=== PATIENT | male | born 1960 | race Caucasian/White ===

== ENCOUNTER → 2018-01-14 | Outpatient (CLI) | payer OTHER ==
[2018-01-14 10:38] LABS: Appearance,Urine Clear (Clear); Bilirubin,Urine Negative (Negative); Blood,Urine Negative (Negative); Color,Urine Yellow; Glucose,Urine (UA) Negative (Negative); HCT 46.7 % (39.0-53.0); HGB 15.7 gm/dL (13.0-17.5); Ketones,Urine Negative (Negative); Leukocyte Esterase,Urine Negative (Negative); MCH 29.1 pg (25.0-35.0); MCHC 33.6 g/dL (31.0-37.0); MCV 86.6 fL (80.0-100.0); Mean Platelet Volume 7.4; Nitrite,Urine Negative (Negative); PH, Urine 6.5 (5.0-8.0); Platelet Count 243 k/uL (150-450); Protein,Urine Negative (Negative); RBC 5.39 m/uL (4.30-5.90); RDW 13.1 % (11.5-15.5); WBC 4.5 k/uL (3.8-10.6)
[2018-01-14 11:09] LABS: ALT 35 U/L (21-72); AST 24 U/L (17-59); Albumin 4.7 g/dL (3.5-5.0); Alkaline Phosphatase 57 U/L (38-126); Anion Gap 15 mmol/L; Blood Urea Nitrogen 15 mg/dL (9-20); Calcium 10.1 mg/dL (8.4-10.2); Carbon Dioxide 28 mmol/L (22-30); Chloride 101 mmol/L (98-107); Cholesterol 143 mg/dL (<200); Creatine Kinase 198 U/L (55-170); Glucose 155 mg/dL (74-99); HDL Cholesterol 48 mg/dL (40-60); LDL Cholesterol,Calculated 72 mg/dL (0-99); Potassium 5.4 mmol/L (3.5-5.1); Sodium 144 mmol/L (137-145); Total Bilirubin 0.5 mg/dL (0.2-1.3); Total Protein 7.2 g/dL (6.3-8.2); Triglycerides 113 mg/dL (<150)
[2018-01-14 11:36] LABS: Prostate Specific Antigen 1.58 ng/mL (0.00-4.00)
[2018-01-14 17:23] LABS: Hemoglobin A1C 7.9 % (4.0-6.0)
== END | disposition home or self-care (01) ==
LOC: LABWHC1 09:54
PROVIDERS: ATTEND Family Medicine
DX: E11.9 Type 2 diabetes mellitus without complications (principal); R79.89 Other specified abnormal findings of blood chemistry; I10 Essential (primary) hypertension; E78.5 Hyperlipidemia, unspecified; Z11.59 Encounter for screening for other viral diseases
CPT/HCPCS: 36415; 80053; 80061; 81003; 82043; 82550; 82570; 83036; 84153; 84402; 84403; 84443; 85027; 86803

== ENCOUNTER → 2018-01-14 | Outpatient (CLI) | payer OTHER ==
[~2018-01-14] MED LIST: DIPH,PERTUS(ACELL)TETVAC-LF 0.5 ML VIAL IM ONE
[2018-01-14 10:39] VITALS: BP 163/96; PULSE 61; RESP 20; TEMP 97.7
== END | disposition home or self-care (01) ==
LOC: PROCWHC3 10:18
PROVIDERS: ATTEND Family Medicine
DX: Z23 Encounter for immunization (principal)
CPT/HCPCS: 36415; 80053; 80061; 81003; 82043; 82550; 82570; 83036; 84153; 84402; 84403; 84443; 85027; 86803; 90471; 90715

== ENCOUNTER → 2018-05-30 | Outpatient (CLI) | payer OTHER ==
[2018-05-30 18:38] LABS: Hemoglobin A1C 7.6 % (4.0-6.0)
== END ==
LOC: LABWHC1 08:58
PROVIDERS: ATTEND Family Medicine
DX: R79.9 Abnormal finding of blood chemistry, unspecified (principal)
CPT/HCPCS: 36415; 83036

== ENCOUNTER → 2020-03-16 | Outpatient (CLI) | payer OTHER ==
--- NOTE | 2020-03-16 12:15 | P.STRESS ---
- Stress Test Note Stress Test Results/Findings: Exam Performed: stress echo exercise Exam Date: 03/16/20 Reason for Exam: HYPERLIPIDEMIA Height: 6 ft Weight: 225 kg Protocol: GLENNA Stage: 3 Duration of Exercise: 9:00 Resting Heart Rate: 78 Resting Blood Pressure: 140/72 Maximum Achieved Heart Rate: 151 Maximum Achieved Blood Pressure: 205/73 85% PMHR: 138 100% PMHR: 162 METS: 10.3 Technologist Comment: Stress Test Results/Findings: This is a 59-year-old gentleman with history of hypertension, diabetes and hypercholesterolemia and also smoking history. Being evaluated for cardiac status. Stress data: Baseline EKG showed sinus rhythm with a AL interval, QRS duration. Blood pressure at rest is 140/72 with pulse rate of 78. Patient walked on the Glenna protocol for 9 minutes achieving a maximal heart rate of 151 with a blood pressure of 205/73. EKGs taken during and after the exercise did not reveal significant changes from the baseline. Patient did not experience any chest pain. Echo data: Baseline echo images show normal wall motion and thickening. Exercise echo images showed augmentation of wall motion and thickening in all the segments. Final impression: #1. Negative stress test #2. Negative stress echo.
--- NOTE | 2020-03-17 13:58 | ECHOS ---
Stress Test Results/Findings: Exam Performed: stress echo exercise Exam Date: 03/16/20 Reason for Exam: HYPERLIPIDEMIA Height: 6 ft Weight: 225 kg Protocol: GLENNA Stage: 3 Duration of Exercise: 9:00 Resting Heart Rate: 78 Resting Blood Pressure: 140/72 Maximum Achieved Heart Rate: 151 Maximum Achieved Blood Pressure: 205/73 85% PMHR: 138 100% PMHR: 162 METS: 10.3 Technologist Comment: Stress Test Results/Findings: This is a 59-year-old gentleman with history of hypertension, diabetes and hypercholesterolemia and also smoking history. Being evaluated for cardiac status. Stress data: Baseline EKG showed sinus rhythm with a OK interval, QRS duration. Blood pressure at rest is 140/72 with pulse rate of 78. Patient walked on the Glenna protocol for 9 minutes achieving a maximal heart rate of 151 with a blood pressure of 205/73. EKGs taken during and after the exercise did not reveal significant changes from the baseline. Patient did not experience any chest pain. Echo data: Baseline echo images show normal wall motion and thickening. Exercise echo images showed augmentation of wall motion and thickening in all the segments. Final impression: #1. Negative stress test #2. Negative stress echo. ANGELA
== END | disposition home or self-care (01) ==
LOC: RADNMMAIN 09:00
PROVIDERS: ATTEND Family Medicine
DX: I10 Essential (primary) hypertension (principal); E78.5 Hyperlipidemia, unspecified; E11.9 Type 2 diabetes mellitus without complications
CPT/HCPCS: 93351

== ENCOUNTER → 2023-06-04 | Outpatient (CLI) | payer OTHER ==
--- NOTE | 2023-06-04 23:39 | MR ---
EXAMINATION TYPE: MR shoulder RT wo con DATE OF EXAM: 06/04/2023 COMPARISON: Outside right shoulder x-ray May 28, 2023 HISTORY: Right shoulder pain, sore shoulder for 6 months with difficulty raising arm overhead TECHNIQUE: Multiplanar, multisequence imaging of the right shoulder is performed without contrast. FINDINGS: Rotator Cuff: Intact supraspinatus and infraspinatus tendons. Intact subscapularis tendon. Rotator cu ff muscle bulk is preserved. Acromioclavicular Joint: Moderate narrowing at the acromioclavicular joint with mild capsular hypertr ophy. Underlying fat plane is maintained. Glenohumeral Joint: There is a moderate-sized joint effusion. No significant spurring. Labrum: The labrum appears grossly intact given limitation of non-arthrogram study. Biceps Tendon: The long head of biceps is in normal location within bicipital groove. Bone marrow signal: There is subchondral cystic change superior lateral humeral head at the rotator c uff tendon insertion and more central humeral head. Other: No additional significant abnormality is appreciated. IMPRESSION: 1. No significant rotator cuff or labral tear. 2. [id number] AC joint arthropathy. 3. Fairly moderate size joint effusion.
== END | disposition home or self-care (01) ==
LOC: RADMRIMAIN 18:49
PROVIDERS: ATTEND Orthopaedic Surgery
DX: M19.011 Primary osteoarthritis, right shoulder (principal); M25.411 Effusion, right shoulder

== ENCOUNTER 2023-07-12 08:22 | Day surgery (SDC) | payer OTHER ==
[2023-07-10 14:43] VITALS: BMI 30.5
[~2023-07-12 08:22] MED LIST changes: -DIPH,PERTUS(ACELL)TETVAC-LF 0.5 ML VIAL IM ONE; +LIDOCAINE 1% (10MG/ML) FOR IV START INTRADERMA PRN
[2023-07-12] MEDS: LACTATED RINGERS 1,000 ML IV SCH ×2 (08:54→09:27)
[2023-07-12 09:09] LABS: Glucose,Whole Blood 128 mg/dL (70-110)
[2023-07-12 09:10] VITALS: RESP 16; TEMP 97
[2023-07-12] MEDS ORDERED: PROPOFOL 10 MG/ML 20 ML VIAL IV ONE (09:30)
--- NOTE | 2023-07-12 09:45 | P.PCN ---
Date of Procedure: 07/12/23 Procedure(s) Performed: BRIEF HISTORY: Patient is a 63-year-old pleasant white male scheduled for an elective colonoscopy as a part of screening for colon cancer. His last coloscopy was 12 years ago. PROCEDURE PERFORMED: Colonoscopy. PREOPERATIVE DIAGNOSIS: Screening for colon cancer. IV sedation per Anesthesia. PROCEDURE: After informed consent was obtained, the patient, was brought into the endoscopy unit. IV sedation was administered by Anesthesia under continuous monitoring. Digital rectal examination was normal. Initially the Olympus CF-160 flexible video colonoscope was then inserted in the rectum, gradually advanced into the cecum without any difficulty. Careful examination was performed as the scope was gradually being withdrawn. Ileocecal valve and the appendiceal orifice were visualized and appeared normal. Prep was fair.. Mucosa of the cecum, ascending colon, transverse colon, descending colon, sigmoid colon, and rectum appeared normal. Retroflexion was performed in the rectum and no lesions were seen. The patient tolerated the procedure well. IMPRESSION: Normal-appearing colon from rectum to cecum with no evidence of colorectal neoplasia. RECOMMENDATIONS: Findings of this examination were discussed with the patient as well as his family.. He was advised to have a repeat screening colonoscopy in 10 years.
[2023-07-12 10:02] VITALS: BP 128/91; PULSE 79
== END 2023-07-12 10:19 | disposition home or self-care (01) ==
LOC: ORWHC2ENDO 08:22
PROVIDERS: ATTEND Internal Medicine Gastroenterology
DX: Z12.11 Encounter for screening for malignant neoplasm of colon (principal); Z79.899 Other long term (current) drug therapy; I10 Essential (primary) hypertension; E78.5 Hyperlipidemia, unspecified; E11.9 Type 2 diabetes mellitus without complications
CPT/HCPCS: 45378; J2704

== ENCOUNTER → 2023-09-02 | Outpatient (CLI) | payer OTHER ==
[2023-09-02 15:12] LABS: Basophils # (A) 0.05 X 10*3/uL (0.00-0.10); Basophils % (A) 0.8 %; Eosinophils # (A) 0.28 X 10*3/uL (0.04-0.35); Eosinophils % (A) 4.7 %; HCT 49.6 % (39.6-50.0); Lymphocytes # (A) 1.48 X 10*3/uL (0.90-5.00); MCH 27.8 pg (27.0-32.0); MCHC 32.3 g/dL (32.0-37.0); MCV 86.3 FL (80.0-97.0); Mean Platelet Volume 10.9 FL (9.5-12.2); Monocytes # (A) 0.48 X 10*3/uL (0.20-1.00); Monocytes % (A) 8.1 %; NRBC Per 100 WBC 0 X 10*3/uL (0.00-0.01); Neutrophils # (A) 3.62 X 10*3/uL (1.80-7.70); Neutrophils % (A) 61.1 %; Platelet Count 260 X 10*3/uL (140-440); RBC 5.75 X 10*6/uL (4.40-5.60); RDW 13.1 % (11.5-14.5); WBC 5.93 X 10*3/uL (4.50-10.00)
[2023-09-02 15:18] LABS: BUN/Creat Ratio 14.69 Ratio (12.00-20.00); Blood Urea Nitrogen 19.1 mg/dL (9.0-27.0); Glucose 237 mg/dL (70-110)
[2023-09-02 15:19] LABS: Calcium 9.8 mg/dL (8.7-10.3); Chloride 98 mmol/L (96-109); Potassium 4.4 mmol/L (3.5-5.5); Sodium 139 mmol/L (135-145)
== END | disposition home or self-care (01) ==
LOC: LABPAT 08:03
PROVIDERS: ATTEND Orthopaedic Surgery
DX: Z01.812 Encounter for preprocedural laboratory examination (principal); M75.41 Impingement syndrome of right shoulder
CPT/HCPCS: 80048; 85025

== ENCOUNTER → 2023-09-03 | Outpatient (CLI) | payer OTHER | END | disposition home or self-care (01) | LOC: LABWHC1 08:48 | PROVIDERS: ATTEND Orthopaedic Surgery | DX: Z01.818 Encounter for other preprocedural examination (principal); M75.41 Impingement syndrome of right shoulder; R94.31 Abnormal electrocardiogram [ECG] [EKG] | CPT/HCPCS: 36415; 93005 ==

== ENCOUNTER 2023-09-05 05:45 | Day surgery (SDC) | payer OTHER ==
--- NOTE | 2023-09-04 19:30 | HP ---
HISTORY AND PHYSICAL DATE OF SURGERY: 09/05/2023. HISTORY OF PRESENT ILLNESS: Antonio Becker is a 63-year-old gentleman seen with progressive right shoulder pain. After having treatment options discussed, he elected to proceed with right shoulder arthroscopy. Consent regarding procedure was obtained. PAST MEDICAL HISTORY: Hypertension, czj-hvtrtte-qdoxzmztz diabetes, hyperlipidemia. PAST SURGICAL HISTORY: Noncontributory. DAILY MEDICATIONS: 1. Amlodipine. 2. Atenolol. 3. Benazepril. 4. Hydrochlorothiazide. 5. Metformin. 6. Rosuvastatin. ALLERGIES: None. SOCIAL HISTORY: He denies tobacco use. PHYSICAL EVALUATION OF THE RIGHT SHOULDER: Flexion is 150 degrees, abduction is 120 degrees. External rotation is 40 degrees with weakness. Tenderness along the anterolateral acromion and rotator cuff insertion. Impingement is positive at 90 degrees. Cross-body adduction sign is positive. Drop- arm sign is positive. Distal neurovascular exam is intact. IMAGING STUDIES: Right shoulder radiographs revealed a type 2 acromion, acromioclavicular joint osteoarthritis, and cystic changes on tuberosity. MRI of right shoulder revealed an evidence for acromioclavicular joint osteoarthritis and moderate effusion. IMPRESSION: 1. Right shoulder impingement with possible rotator cuff tear. 2. Right shoulder acromioclavicular joint osteoarthritis. 3. Hypertension. 4. Hyperlipidemia. 5. Kaw-ndptzhv-fscituyau diabetes. PLAN: Right shoulder arthroscopy with subacromial decompression, possible arthroscopic rotator cuff repair, Arcenio procedure and debridement. MMODL / IJN: [id number] /
[2023-09-05] MEDS ORDERED: LACTATED RINGERS 1,000 ML IV SCH (06:09)
[2023-09-05] MEDS ORDERED: DEXAMETHASONE SOD PHOSPHATE 4 MG/ML 1 ML VIAL IV ONE (06:09)
[2023-09-05] MEDS ORDERED: ONDANSETRON 4 MG/2 ML VIAL IVP ONE (06:09)
[2023-09-05] MEDS ORDERED: LIDOCAINE 1% (10MG/ML) FOR IV START INTRADERMA PRN (06:09)
[2023-09-05 06:43] LABS: Glucose,Whole Blood 150 mg/dL (70-110)
[2023-09-05] MEDS ORDERED: MIDAZOLAM 2 MG/2 ML VIAL IVP ONE (06:55)
[2023-09-05] MEDS ORDERED: HYDROmorphone 0.5 MG/0.5 ML SYRINGE IVP PRN (07:00)
[2023-09-05] MEDS ORDERED: MIDAZOLAM 2 MG/2 ML VIAL IV PRN (07:00)
[2023-09-05] MEDS ORDERED: LIDOCAINE 1% INJ 10MG/ML (20 ML MDV) ONE (07:22)
[2023-09-05] MEDS ORDERED: PROPOFOL 10 MG/ML 20 ML VIAL IV ONE (07:22)
[2023-09-05] MEDS ORDERED: DEXAMETHASONE SOD PHOSPHATE 4 MG/ML 1 ML VIAL ONE (07:22)
[2023-09-05] MEDS ORDERED: fentaNYL (PF) 50 MCG/ML 2 ML AMP ONE (07:22)
[2023-09-05] MEDS ORDERED: MIDAZOLAM 2 MG/2 ML VIAL ONE (07:22)
[2023-09-05] MEDS ORDERED: SUCCINYLCHOLINE CHLORIDE 200 MG/10 ML VIAL IV ONE (07:22)
[2023-09-05] MEDS ORDERED: ROPIVACAINE 5 MG/ML 30 ML VIAL ONE (07:22)
--- NOTE | 2023-09-05 09:14 | P.OP ---
Date of Procedure: 09/05/23 Preoperative Diagnosis: Right shoulder impingement Postoperative Diagnosis: 1. Right shoulder rotator cuff tear 2. Right shoulder bicipital tendinitis 3. Right shoulder impingement 4. Right shoulder acromioclavicular joint osteoarthritis 5. Right shoulder superficial labral tear Procedure(s) Performed: 1. Right shoulder arthroscopic rotator cuff repair 2. Right shoulder arthroscopic biceps tenodesis 3. Right shoulder arthroscopic subacromial decompression 4. Right shoulder arthroscopic Arcenio procedure 5. Right shoulder arthroscopic debridement labral tear Implants: 2Arthrex 4.75 swivel lock anchors Anesthesia: GETA, regional (Interscalene block) Surgeon: Ray Dunbar Lens Inspector #1: Howard Gutierrez Estimated Blood Loss (ml): 8 Pathology: none sent Condition: stable Disposition: PACU Indications for Procedure: 63-year-old patient seen with progressive right shoulder pain. After having treatment options discussed, he elected to proceed with arthroscopy. Operative Findings: See description of procedure Description of Procedure: Patient underwent an interscalene block by department of anesthesia. The patient was then taken to the operative suite. The patient underwent a general anesthetic by the department of anesthesia. The patient was placed into a lateral position and secured. There was appropriate padding of the bony prominence. Right shoulder was then prepped and draped in normal sterile orthopedic fashion. We placed the extremity in 10 pounds of longitudinal traction. A posterior incision was now made for a posterior working portal site. The trocar and cannula were inserted into the glenohumeral joint. Arthroscopy was initiated. Spinal needle was now inserted anteriorly, to ascertain the anterior working portal site. An incision was now made in that area, a trocar was inserted followed by a probe. There was significant hyperemia of the long head biceps tendon consistent with bicipital tendinitis. There was some graham perficial tearing of the superior labrum. There was no synovitis chondromalacia present. I debrided out the superficial labral tear. The residual labrum was probed and was found to be stable. I decided to proceed with arthroscopic biceps tenodesis. I introduced a cannula through the anterior portal site. I passed a looped and tacked type stitch to the biceps tendon. I released the biceps tendon from the superior labral anchor. With the assistance of Mohinder MARSHALL a partial hole at the interval for insertion of an anchor. The suture limb was passed through the eyelet Arthrex 4.75 swivel lock anchor. I placed the eyelet into the pre-punch hole. I held it in position while Mohinder MARSHALL tension the suture and the héctor the anchor was good fixation noted. The residual suture limb was clipped. The biceps tenodesis appeared stable. Instruments were removed from the glenohumeral joint. Utilizing the posterior working portal site, the trocar and cannula were inserted into the subacromial space. Arthroscopy initiated. I made an incision 2 fingerbreadths lateral to the acromion. I introduced my trocar followed by my ArthroCare ablator. I now began ablating thick subacromial bursal tissue, which exposed the undersurface of the anterior acromion. There was diminished subacromial space. There was a very prominent anterior acromion. A motorized bur was introduced and a subacromial decompression was performed. I also excised some osteophytes off the inferior aspect of the distal clavicle. The AC joint was visualized and noted to be fairly arthritic. The motorized bur was introduced in the anterior portal site and a Arcenio procedure was performed without difficulty, decompressing the AC joint nicely. I turned my attention to the rotator cuff. There was significant tearing along the distal supraspinatus tendon area. Upon probing the area noted a full-thickness perforation present. I debrided the margins getting down to stable tendon tissue. I abraded the footprint with a motorized bur. I passed 2 everted mattress sutures through good bites of rotator cuff tendon. I punched the hole in the footprint area for insertion of an anchor. All 4 limbs of suture were passed through the eyelet of Arthrex 4.75 swivel lock anchor. I placed the eyelet into our pre-punch hole. I held in position while Mohinder MARSHALL tension all 4 limbs of suture and deployed the anchor was good fixation noted. All residual suture limbs were now clipped. We had good compression of the tendon along the entire footprint. Instruments now removed from the portal sites. All portal sites were approximated with nylon suture. Sterile dressings were applied followed by a shoulder sling. Howard MARSHALL assisted in this complex case. The patient was awakened, transferred to a bed, and taken to recovery in stable condition.
[2023-09-05 09:18] VITALS: TEMP 97.4
[2023-09-05 09:41] LABS: Glucose,Whole Blood 155 mg/dL (70-110)
[2023-09-05] MEDS ORDERED: HYDROcodone/APAP 7.5-325MG 1 EACH TAB ONE (10:39)
[2023-09-05 11:40] VITALS: BP 157/85; PULSE 102; RESP 18
--- NOTE | 2023-09-05 20:31 | P.ANPRN ---
Procedure Note - Anesthesia - Nerve Block Performed Right Interscalene Single Time Out Performed: Yes Date of Procedure: 09/05/23 Procedure Start Time: 06:54 Procedure Stop Time: 06:58 Location of Patient: PreOp Indication: Acute Post-Operative Pain, Requested by Surgeon Sedation Type: Sedate with meaningful contact maintained Preparation: Sterile Prep Position: Supine Needle Types: Pajunk Needle Gauge: 21 Ultrasound used to visualize needle placement: Yes Ultrasound used to observe medication spread: Yes Blood Aspirated: No Pain Paresthesia on Injection Noted: No Resistance on Injection: Normal Image Stored and Saved: Yes Events: Uneventful and Well Tolerated (Begin 0.5% 20 mL plus dexamethasone 4 mg)
== END 2023-09-05 11:36 | disposition home or self-care (01) ==
LOC: OR 05:45
PROVIDERS: ATTEND Orthopaedic Surgery
DX: S43.431A Superior glenoid labrum lesion of right shoulder, initial encounter (principal); M75.101 Unspecified rotator cuff tear or rupture of right shoulder, not specified as traumatic; M75.21 Bicipital tendinitis, right shoulder; M19.011 Primary osteoarthritis, right shoulder; I10 Essential (primary) hypertension; E11.9 Type 2 diabetes mellitus without complications; E78.5 Hyperlipidemia, unspecified; Z79.84 Long term (current) use of oral hypoglycemic drugs; Z79.899 Other long term (current) drug therapy; Z98.890 Other specified postprocedural states; X58.XXXA Exposure to other specified factors, initial encounter
CPT/HCPCS: 64415; 29827; 29828; 29826; 29824; C1713 ×3; J2250; J0330; J1100; J0690; J2405; J2001; J3010; J2795; J2704

== ENCOUNTER 2024-01-13 08:07 | Day surgery (SDC) | payer OTHER ==
[2024-01-09 13:09] VITALS: BMI 29.1
--- NOTE | 2024-01-12 12:01 | HP ---
HISTORY AND PHYSICAL DATE OF SCHEDULED SURGERY: 01/13/2024. HISTORY OF PRESENT ILLNESS: Antonio Becker is a 63-year-old gentleman seen with right shoulder adhesive capsulitis with history of previous arthroscopy. We discussed options. He elected to proceed with manipulation under anesthesia of right shoulder with steroid injection. Consent obtained. PAST MEDICAL HISTORY: Hypertension, hyperlipidemia, ipr-jxphzya-cmcxyhhbj diabetes. SURGICAL HISTORY: Shoulder arthroscopy. DAILY MEDICATIONS: 1. Amlodipine. 2. Benazepril. 3. Metformin. 4. Rosuvastatin. ALLERGIES: None. SOCIAL HISTORY: Denies tobacco use. PHYSICAL EVALUATION OF THE RIGHT SHOULDER: He has well-healed arthroscopic portal sites. Flexion is 90 degrees. Abduction is 80 degrees. External rotation 0 degrees. His distal neurovascular exam is intact. IMAGING STUDIES: Radiographs of the right shoulder reveal stable conversion to a flat anterior acromion, evidence for previous Arcenio procedure. IMPRESSION: 1. Right shoulder adhesive capsulitis. 2. History of right shoulder arthroscopy. 3. Hypertension. 4. Hyperlipidemia. 5. Vod-chrfcke-qdypxntkt diabetes. PLAN: Manipulation under anesthesia of right shoulder with steroid injection. MMODL / IJN: [id number] /
[~2024-01-13 08:07] MED LIST changes: +HYDROmorphone 0.5 MG/0.5 ML SYRINGE IVP PRN; -LIDOCAINE 1% (10MG/ML) FOR IV START INTRADERMA PRN; +MIDAZOLAM 2 MG/2 ML VIAL IV PRN
[2024-01-13] MEDS: LACTATED RINGERS 1,000 ML IV SCH (08:40)
[2024-01-13] MEDS: LIDOCAINE 1% (10MG/ML) FOR IV START INTRADERMA ONE (08:40)
[2024-01-13] MEDS: ONDANSETRON 4 MG/2 ML VIAL ONE (08:53)
[2024-01-13 08:56] LABS: Glucose,Whole Blood 137 mg/dL (70-110)
[2024-01-13] MEDS ORDERED: MIDAZOLAM 2 MG/2 ML VIAL ONE (09:30)
[2024-01-13] MEDS ORDERED: fentaNYL (PF) 50 MCG/ML 2 ML AMP ONE (09:30)
[2024-01-13] MEDS ORDERED: LIDOCAINE 1% INJ 10MG/ML (20 ML MDV) ONE (09:30)
[2024-01-13] MEDS ORDERED: PROPOFOL 10 MG/ML 20 ML VIAL IV ONE (09:30)
[2024-01-13] MEDS: BUPIVACAINE (PF) 0.25% 10 ML VIAL MISCELLANE ONE (09:40)
[2024-01-13] MEDS: methylPREDNISolone ACETATE 80 MG/ML 1 ML VIAL IM ONE (09:40)
--- NOTE | 2024-01-13 09:47 | P.OP ---
Date of Procedure: 01/13/24 Preoperative Diagnosis: Right shoulder adhesive capsulitis Postoperative Diagnosis: Right shoulder adhesive capsulitis Procedure(s) Performed: Manipulation under anesthesia right shoulder with steroid injection Anesthesia: MAC Surgeon: Ray Dunbar Estimated Blood Loss (ml): 0 Pathology: none sent Condition: stable Disposition: PACU Indications for Procedure: 63-year-old patient seen with right shoulder adhesive capsulitis. After having treatment options discussed, he elected to proceed with manipulation under anesthesia right shoulder with steroid injection. Operative Findings: See description of procedure Description of Procedure: Patient was taken to a monitored anesthesia area. Patient received IV sedation by the department of anesthesia. When sufficient anesthesia was noted a manipulation of the right shoulder was performed achieving full range of motion with audible tearing of the adhesions. The anterior aspect of the shoulder was prepped and draped in normal sterile orthopedic fashion. I injected a solution of 1 cc Depo-Medrol and 2 cc of quarter percent plain Marcaine intra-articular under sterile technique. A sterile bandage was now applied. I again took the shoulder through range of motion. The patient was awakened having tolerated the procedure well.
[2024-01-13 09:54] LABS: Glucose,Whole Blood 122 mg/dL (70-110)
[2024-01-13 10:14] VITALS: TEMP 97
[2024-01-13] MEDS ORDERED: HYDROcodone/APAP 7.5-325MG 1 EACH TAB ONE (10:28)
[2024-01-13] MEDS: HYDROcodone/APAP 7.5-325MG 1 EACH TAB PO ONE (10:30)
[2024-01-13 11:18] VITALS: BP 134/79; PULSE 84; RESP 16
== END 2024-01-13 11:05 | disposition home or self-care (01) ==
LOC: OR 08:07
PROVIDERS: ATTEND Orthopaedic Surgery
DX: M75.01 Adhesive capsulitis of right shoulder (principal); I10 Essential (primary) hypertension; E78.5 Hyperlipidemia, unspecified; E11.9 Type 2 diabetes mellitus without complications; Z79.84 Long term (current) use of oral hypoglycemic drugs; Z79.899 Other long term (current) drug therapy; Z87.891 Personal history of nicotine dependence; Z98.890 Other specified postprocedural states
CPT/HCPCS: 23700; J2250; J2405; J2001; J3010; J2704; J0665; J1010

== ENCOUNTER → 2024-12-04 | Outpatient (CLI) | payer OTHER ==
[2024-12-04 15:32] LABS: BUN/Creat Ratio 13.62 Ratio (12.00-20.00); Blood Urea Nitrogen 17.7 mg/dL (9.0-27.0); Calcium 10.5 mg/dL (8.7-10.3); Carbon Dioxide 28.8 mmol/L (21.6-31.8); Chloride 98 mmol/L (96-109); Chol/HDL Ratio 2.72 Ratio; Glucose 205 mg/dL (70-110); LDL Cholesterol,Calculated 18.9 mg/dL (0.0-131.0); Potassium 4.4 mmol/L (3.5-5.5); Sodium 139 mmol/L (135-145)
== END | disposition home or self-care (01) ==
LOC: LABWHC1 10:23
PROVIDERS: ATTEND Internal Medicine
DX: E78.5 Hyperlipidemia, unspecified (principal); E11.9 Type 2 diabetes mellitus without complications
CPT/HCPCS: 36415; 80048; 80061; 83036